=== PATIENT | male | born 1995 | race Hispanic/Latino ===

== ENCOUNTER 2020-05-29 10:35 | Emergency (ER) | payer MEDICAID, OTHER ==
[2020-05-29 11:06] VITALS: TEMP 97.1
--- NOTE | 2020-05-29 11:52 | RAD ---
EXAM DESCRIPTION: Hand,Right 3 Views CLINICAL HISTORY: smashed hand COMPARISON: None Available. TECHNIQUE: AP, LATERAL, AND OBLIQUE FINDINGS: Three-view right hand shows no fracture or dislocation. The hand appear swollen but no foreign body or fracture or dislocation seen. Swelling appears greatest involving the index finger and palm of the hand. IMPRESSION: 1. Soft tissue swelling involving the central hand and the index finger and to a lesser extent the other digits. No fracture or dislocation seen. Electronically signed by: Edwin Parekh MD 05/29/2020 11:50 AM CDT
--- NOTE | 2020-05-29 12:46 | ED.PDOC ---
History of Present Illness - General Chief Complaint: Upper Extremity Injury Stated Complaint: smashed right hand Time Seen by Provider: 05/29/20 12:38 Source: patient, RN notes reviewed, Vital Signs reviewed Exam Limitations: no limitations - History of Present Illness Initial Comments: Patient is a 24-year-old male who presents with complaints of right hand and finger pain. He was at work when he smashed it. The pain is moderate in intensity. Is throbbing in nature. Is worse with palpation or dangling the hand. Is better with elevation and ice. As well as immobilization. There is no radiation of the pain. Occurred: just prior to arrival Pain - Upper Extremity: severe: Hand, right Method of Injury: direct blow Improving Factors: cold therapy, immobilization, rest Worsening Factors: movement Allergies/Adverse Reactions: Allergies NO KNOWN ALLERGY Allergy (Verified 05/29/20 10:46) Review of Systems - Review of Systems Constitutional: States: no symptoms reported, see HPI EENTM: States: no symptoms reported Respiratory: States: no symptoms reported Cardiology: States: no symptoms reported Gastrointestinal/Abdominal: States: no symptoms reported Genitourinary: States: no symptoms reported Musculoskeletal: States: see HPI, joint pain, joint swelling - Of the hand and finger. Skin: States: no symptoms reported Neurological: States: no symptoms reported Endocrine: States: no symptoms reported Hematologic/Lymphatic: States: no symptoms reported All other Systems: Reviewed and Negative Past Medical History (General) - Patient Medical History Hx Stroke: No Hx Cardiac Disorders: No Hx Congestive Heart Failure: No Hx Hypertension: No Hx Diabetes: No Hx Gastroesophageal Reflux: Yes Surgical History: no surgical history - Vaccination History Hx Influenza Vaccination: Yes - Social History Hx Alcohol Use: Yes - Activities of Daily Living Hospice Agency (if applicable):: None - Female History Patient is a Female of Child Bearing Age (10 -59 yrs old): No - Triage Comment ED Triage Comment: pt voices he smashed his right hand in between some wire. Family Medical History - Family History Mother Family History: No Known Physical Exam - Physical Exam General Appearance: Alert, Anxious, Well Developed, Well Groomed, Well Hydrated, Well Nourished Eyes, Ears, Nose, Throat Exam: PERRL/EOMI, normal ENT inspection, pharynx normal Neck: non-tender, full range of motion, supple, normal inspection Cardiovascular/Respiratory: regular rate, rhythm, no M/R/G, normal peripheral pulses Abdominal Exam: non-tender, no organomegaly Back Exam: normal inspection, no CVA tenderness, no vertebral tenderness Elbow/Forearm Exam: normal inspection Wrist Exam: normal inspection Hand Exam: abrasions, soft tissue tenderness, swelling Neuro/Tendon: normal sensation, normal motor functions, normal tendon functions, responds to pain Mental Status: alert, oriented x 3 Skin Exam: normal color, warm/dry Progress - Progress Progress: Differential diagnosis: Hand fracture, finger fracture, hand contusion, finger contusion, hand sprain among others. 05/29/20 12:48 X-rays are negative for fracture. I believe his hand is just contused from being smashed. Plan on discharge home. Will have nurses Jeffrey wrap the hand for comfort. Patient to take [id number] Tylenol Motrin for pain control. Patient to follow-up with PCP. I discussed this plan of care with the patient he voices understanding and agreement. Daniele Catalan M.D. #[id number] - Results/Orders Results/Orders: EXAM DESCRIPTION: Hand,Right 3 Views CLINICAL HISTORY: smashed hand COMPARISON: None Available. TECHNIQUE: AP, LATERAL, AND OBLIQUE FINDINGS: Three-view right hand shows no fracture or dislocation. The hand appear swollen but no foreign body or fracture or dislocation seen. Swelling appears greatest involving the index finger and palm of the hand. IMPRESSION: 1. Soft tissue swelling involving the central hand and the index finger and to a lesser extent the other digits. No fracture or dislocation seen. Electronically signed by: Edwin Parekh MD 05/29/2020 11:50 AM Departure - Departure Clinical Impression: Contusion of hand including fingers Qualifiers: Encounter type: initial encounter Laterality: right Qualified Code(s): S60.221A - Contusion of right hand, initial encounter; S60.00XA - Contusion of unspecified finger without damage to nail, initial encounter Time of Disposition: 12:49 Disposition: Discharge to Home or Self Care Condition: Good Departure Forms: ED Discharge - Pt. Copy, Patient Portal Self Enrollment Instructions: Contusion (DC) Diet: resume usual diet Activity: increase activity as tolerated Referrals: ADAM BARRY [Primary Care Provider] - 1 Week
[2020-05-29 13:09] VITALS: BP 124/71; O2SAT 97
== END 2020-05-29 13:14 | disposition home or self-care (01) ==
LOC: ER 10:35
DX: S60.221A Contusion of right hand, initial encounter (principal); S60.00XA Contusion of unspecified finger without damage to nail, initial encounter; W23.0XXA Caught, crushed, jammed, or pinched between moving objects, initial encounter; Y92.9 Unspecified place or not applicable